=== PATIENT | female | born 1960 | race Caucasian/White ===

== ENCOUNTER 2016-09-16 09:29 | Emergency (ER) | payer BC ==
[2016-09-16] MEDS ORDERED: ASPIRIN 81 MG CHEWABLE TABLET PO ONE (09:48)
[2016-09-16 10:09] LABS: BASO % 0.7 % (0-6); EOS % 0.7 % (0-6); HEMATOCRIT 46.6 % (35.0-47.0); HEMOGLOBIN 16.1 gm/dl (11.6-16.0); LYMPH % 25.2 % (16-45); MEAN CELL VOLUME 95.1 fl (81-97); MEAN CORPUSCULAR HGB CONC 34.5 g/dl (32-36); MEAN PLATELET VOLUME 9.3 fl (7.4-10.4); MONO % 6.4 % (0-9); PLATELET COUNT 152 K/uL (130-400); RED CELL DISTRIBUTION WIDTH 12.6 % (11.5-14.5); WHITE BLOOD COUNT W/O DIFF 6.1 K/uL (4.2-12.2)
--- NOTE | 2016-09-16 10:09 | Emergency Department Record ---
History of Present Illness - General Chief Complaint: Arrythmia/Palpitations Stated Complaint: FLUTTERY IN CHEST AREA Time Seen by Provider: 09/16/16 09:46 Source: Patient, RN notes reviewed Mode of Arrival: Ambulatory - History of Present Illness Initial Comments: fluttering in chest for two days and she denies chest pain and she drinks one to two diet pepsis per day and and she denies stress and no cough cold or NVD and no dysuria and no dyspnea and no leg pains of travel history . Primary is Dr. Renner. Patient has had this happened before about 20 years ago. Currently no fluttering or chest pain. NSR and rate 98 on the monitor. MD Complaint: Palpitations Onset/Timin -: Days(s) Associated Symptoms: Anxiety Treatments Prior to Arrival: Other - Related Data Home Medications Medication Instructions Recorded Confirmed Last Taken Gabapentin 100 mg PO TID cap 06/12/16 09/16/16 09/15/16 Meloxicam 7.5 mg PO DAILY tab 06/12/16 09/16/16 09/16/16 Calcium Carbonate [Calcium] 600 mg PO DAILY 09/16/16 09/16/16 09/15/16 Cholecalciferol (Vitamin D3) 1,000 unit PO DAILY 09/16/16 09/16/16 09/15/16 [Vitamin D3] Multivitamin [Multi-Vitamin Daily] 1 each PO DAILY 09/16/16 09/16/16 09/15/16 [place]-3/Dha/Epa/Fish Oil [Fish Oil 1 each PO DAILY 09/16/16 09/16/16 09/16/16 1,000 mg Softgel] Pravastatin Sodium [Pravachol] 20 mg PO DAILY 09/16/16 09/16/16 09/16/16 Ranitidine HCl [Zantac] 150 mg PO DAILY 09/16/16 09/16/16 09/16/16 Trazodone HCl 50 mg PO QHS 09/16/16 09/16/16 09/15/16 Previous Rx's Medication Instructions Recorded Lorazepam [Ativan] 0.5 mg PO Q6HR #20 tablet 09/16/16 Allergies Allergy/AdvReac Type Severity Reaction Status Date / Time No Known Drug Allergies Allergy Unverified 06/12/16 10:15 Travel Screening - Travel/Exposure Within Last 30 Days Have you traveled within the last 30 days?: No - Travel/Exposure Within Last Year Have you traveled outside the [place] in the last year?: No Review of Systems Reviewed: No additional complaints except as noted below Constitutional: Reports: As per HPI. Denies: Chills, Fever, Malaise, Night sweats, Weakness, Weight change Eyes: Reports: As per HPI. Denies: Eye discharge, Eye pain, Photophobia, Vision change ENT: Reports: As per HPI. Denies: Congestion, Dental pain, Ear pain, Epistaxis , Hearing loss, Throat pain Respiratory: Reports: As per HPI. Denies: Cough, Dyspnea, Hemoptysis, Stridor, Wheezes Cardiovascular: Reports: As per HPI, Palpitations. Denies: Arrhythmia, Chest pain, Dyspnea on exertion, Edema, Murmurs, Orthopnea, Paroxysmal nocturnal dyspnea, Rheumatic Fever, Syncope Endocrine: Reports: As per HPI. Denies: Fatigue, Heat or cold intolerance, Polydipsia, Polyuria Gastrointestinal: Reports: As per HPI. Denies: Abdominal pain, Constipation, Diarrhea, Hematemesis, Hematochezia, Melena, Nausea, Vomiting Genitourinary: Reports: As per HPI. Denies: Abnormal menses, Discharge, Dyspareunia, Dysuria, Frequency, Hematuria, Incontinence, Retention, Urgency Musculoskeletal: Reports: As per HPI. Denies: Arthralgia, Back pain, Gout, Joint swelling, Myalgia, Neck pain Skin: Reports: As per HPI. Denies: Bruising, Change in color, Change in hair/ nails, Lesions, Pruritus, Rash Neurological: Reports: As per HPI. Denies: Abnormal gait, Confusion, Headache, Numbness, Paresthesias, Seizure, Tingling, Tremors, Vertigo, Weakness Psychiatric: Reports: As per HPI. Denies: Anxiety, Auditory hallucinations, Depression, Homicidal thoughts, Suicidal thoughts, Visual hallucinations Hematological/Lymphatic: Reports: As per HPI. Denies: Anemia, Blood Clots, Easy bleeding, Easy bruising, Swollen glands Past Medical History - SOCIAL HISTORY Smoking Status: Never smoker Alcohol Use: None Drug Use: None - RESPIRATORY Hx Respiratory Disorders: Yes Hx Bronchitis: Yes - CARDIOVASCULAR Hx Cardio Disorders: No - NEURO Hx Neuro Disorders: No - GI Hx GI Disorders: Yes Hx Reflux: Yes Hx Hiatal Hernia: Yes - Hx Genitourinary Disorders: No - ENDOCRINE Hx Endocrine Disorders: No - MUSCULOSKELETAL Hx Musculoskeletal Disorders: Yes Hx Arthritis: Yes - PSYCH Hx Psych Problems: Yes Hx Depression: Yes - HEMATOLOGY/ONCOLOGY Hx Hematology/Oncology Disorders: No Family Medical History Any Significant Family History?: No Physical Exam - General General Appearance: Alert, Oriented x3, Cooperative, No acute distress - Head Head exam: Normal inspection - Eye Eye exam: Normal appearance, PERRL Pupils: Normal accommodation - ENT ENT exam: Normal exam, Mucous membranes moist, Normal external ear exam, Normal orophraynx, TM's normal bilaterally Ear exam: Normal external inspection. negative: External canal tenderness Nasal Exam: Normal inspection. negative: Discharge, Sinus tenderness Mouth exam: Normal external inspection, Tongue normal Teeth exam: Normal inspection. negative: Dental caries Throat exam: Normal inspection. negative: Tonsillar erythema, Tonsillar exudate - Neck Neck exam: Normal inspection, Full ROM. negative: Tenderness - Respiratory Respiratory exam: Normal lung sounds bilaterally. negative: Respiratory distress - Cardiovascular Cardiovascular Exam: Regular rate, Normal rhythm, Normal heart sounds - GI/Abdominal GI/Abdominal exam: Soft, Normal bowel sounds. negative: Tenderness - Rectal Rectal exam: Deferred - exam: Deferred - Extremities Extremities exam: Normal inspection, Full ROM, Normal capillary refill. negative: Tenderness - Back Back exam: Reports: Normal inspection, Full ROM. Denies: Muscle spasm, Rash noted, Tenderness - Neurological Neurological exam: Alert, Normal gait, Oriented X3, Reflexes normal - Psychiatric Psychiatric exam: Normal affect, Normal mood - Skin Skin exam: Dry, Intact, Normal color, Warm Course Vital Signs 09/16/16 09/16/16 09:30 09:39 Temperature 98.3 F Pulse Rate [ 107 H Pulse Ox Probe] Respiratory 16 Rate Blood Pressure 145/79 [Left Arm] Pulse Ox 96 Medical Decision Making - Data Complexity MDM Data: EKG Ordered and/or Reviewed (NSR) - Lab Data Result diagrams: 09/16/16 09:54 09/16/16 09:54 Disposition Clinical Impression: Palpitations Disposition: Home, Self-Care Condition: (1) Good Instructions: Heart Palpitations (ED) Additional Instructions: use holter monitor follow up with Dr. Renner in 1 to 7 days and if worse return to ED. Prescriptions: Lorazepam [Ativan] 0.5 mg PO Q6HR #20 tablet Forms: Patient Portal Access Time of Disposition: 15:02
[2016-09-16 10:13] LABS: MEAN CORPUSCULAR HEMOGLOBIN 32.8 pg (27-33)
[2016-09-16] MEDS ORDERED: LORAZEPAM 0.5 MG TABLET PO ONE (10:15)
[2016-09-16 10:22] LABS: ANION GAP 8.8 (7-16); BLOOD UREA NITROGEN 13 mg/dL (7-17); CARBON DIOXIDE 22.2 mmol/L (22-30); CREATININE 0.9 mg/dL (0.52-1.04); EST GLOMERULAR FILTRATION RATE > 60 ml/min; GLUCOSE,RANDOM 116 mg/dL (70-110)
[2016-09-16 10:34] LABS: CKMB 0.8 ug/L (0-6)
[2016-09-16 10:36] LABS: TROPONIN I < 0.012 ng/mL (0.00-0.034)
[2016-09-16] MEDS ORDERED: AL HYDROX/MAG HYDROX 30ML UD PO ONE (11:33)
--- NOTE | 2016-09-17 15:04 | RADIOLOGY REPORT ---
EXAM: CHEST 2 VIEWS HISTORY: RIGHT LOWER CHEST PAIN FOR THE PAST TWO DAYS. TECHNIQUE: PA and lateral upright views of the chest were obtained. COMPARISON: 06/12/16. FINDINGS: The heart, mediastinum, and pulmonary vasculature are normal. There is minor atelectasis or infiltrate at the right lung base. The lungs are otherwise clear. There is no pneumothorax or effusion. Degenerative changes are present within the spine. \ IMPRESSION: MILD ATELECTASIS OR INFILTRATE AT THE RIGHT LUNG BASE. JOB NUMBER: [id number] [facility]
== END 2016-09-16 15:44 | disposition home or self-care (01) ==
LOC: ER 09:29
DX: R00.2 Palpitations (principal)
CPT/HCPCS: 71020; 80048; 82553; 84443; 84484; 85025; 85730; 93005; 93010; 93225; 93226; 99284

== ENCOUNTER 2016-09-28 09:22 | Emergency (ER) | payer BC ==
[2016-09-28] MEDS ORDERED: 0.9 % SODIUM CHLORIDE 1,000 ML BAG IV ONE (10:02)
--- NOTE | 2016-09-28 10:17 | Emergency Department Record ---
History of Present Illness - General Chief Complaint: Palpitations Stated Complaint: FLUTTERING/NAUSEA/DIZZY Time Seen by Provider: 09/28/16 09:55 Source: Patient Mode of Arrival: Ambulatory Limitations: No limitations - History of Present Illness Initial Comments: pt has been feeling palpitations, nausea, lightheaded. she has been seen 2 other times for this here and at [facility]. her workups have been neg for etiology of palpitations. she did take her medications and vitamins on a empty stomach. she saw dr boo visualization developer last week and has more test scheduled with him. she had a neg 24 hr halter monitor Complaint: Palpitations Onset/Timin -: Hour(s) Context: Other Arrythmia History: Other Associated Symptoms: Nausea/vomiting, Other Treatments Prior to Arrival: Other Treatment Prior to Arrival Comment:: Baby aspirin - Related Data Home Medications Medication Instructions Recorded Confirmed Last Taken Gabapentin 100 mg PO TID cap 06/12/16 09/28/16 09/27/16 Meloxicam 7.5 mg PO DAILY tab 06/12/16 09/28/16 09/28/16 Calcium Carbonate [Calcium] 600 mg PO DAILY 09/16/16 09/28/16 09/28/16 Cholecalciferol (Vitamin D3) 1,000 unit PO DAILY 09/16/16 09/28/16 09/28/16 [Vitamin D3] Multivitamin [Multi-Vitamin Daily] 1 each PO DAILY 09/16/16 09/28/16 09/28/16 [place]-3/Dha/Epa/Fish Oil [Fish Oil 1 each PO DAILY 09/16/16 09/28/16 09/28/16 1,000 mg Softgel] Trazodone HCl 50 mg PO QHS 09/16/16 09/28/16 09/28/16 Aspirin [Aspir-Low] 81 mg PO DAILY 09/28/16 09/28/16 09/28/16 Fenofibrate [Fenoglide] 120 mg PO DAILY 09/28/16 09/28/16 09/28/16 Omeprazole [Prilosec] 20 mg PO DAILY 09/28/16 09/28/16 09/28/16 Previous Rx's Medication Instructions Recorded Lorazepam [Ativan] 0.5 mg PO Q6HR #20 tablet 09/16/16 Dicyclomine HCl [Bentyl] 10 mg PO Q8H #10 cap 09/28/16 Hydrocodone/Acetaminophen [[place] 1 each PO Q6HR #7 tablet 09/28/16 5-325 Tablet] Allergies Allergy/AdvReac Type Severity Reaction Status Date / Time No Known Drug Allergies Allergy Unverified 06/12/16 10:15 Travel Screening - Travel/Exposure Within Last 30 Days Have you traveled within the last 30 days?: No - Travel/Exposure Within Last Year Have you traveled outside the [place] in the last year?: No - Additonal Travel Details Have you been exposed to anyone with a communicable illness?: No - Travel Symptoms Symptom Screening: None Review of Systems Reviewed: No additional complaints except as noted below Constitutional: Reports: As per HPI. Denies: Chills, Fever, Malaise, Night sweats, Weakness, Weight change Eyes: Reports: As per HPI. Denies: Eye discharge, Eye pain, Photophobia, Vision change ENT: Reports: As per HPI. Denies: Congestion, Dental pain, Ear pain, Epistaxis , Hearing loss, Throat pain Respiratory: Reports: As per HPI. Denies: Cough, Dyspnea, Hemoptysis, Stridor, Wheezes Cardiovascular: Reports: As per HPI. Denies: Arrhythmia, Chest pain, Dyspnea on exertion, Edema, Murmurs, Orthopnea, Palpitations, Paroxysmal nocturnal dyspnea, Rheumatic Fever, Syncope Endocrine: Reports: As per HPI. Denies: Fatigue, Heat or cold intolerance, Polydipsia, Polyuria Gastrointestinal: Reports: As per HPI. Denies: Abdominal pain, Constipation, Diarrhea, Hematemesis, Hematochezia, Melena, Nausea, Vomiting Genitourinary: Reports: As per HPI. Denies: Abnormal menses, Discharge, Dyspareunia, Dysuria, Frequency, Hematuria, Incontinence, Retention, Urgency Musculoskeletal: Reports: As per HPI. Denies: Arthralgia, Back pain, Gout, Joint swelling, Myalgia, Neck pain Skin: Reports: As per HPI. Denies: Bruising, Change in color, Change in hair/ nails, Lesions, Pruritus, Rash Neurological: Reports: As per HPI. Denies: Abnormal gait, Confusion, Headache, Numbness, Paresthesias, Seizure, Tingling, Tremors, Vertigo, Weakness Psychiatric: Reports: As per HPI. Denies: Anxiety, Auditory hallucinations, Depression, Homicidal thoughts, Suicidal thoughts, Visual hallucinations Hematological/Lymphatic: Reports: As per HPI. Denies: Anemia, Blood Clots, Easy bleeding, Easy bruising, Swollen glands Past Medical History - SOCIAL HISTORY Smoking Status: Never smoker Alcohol Use: None Drug Use: None - RESPIRATORY Hx Respiratory Disorders: Yes Hx Bronchitis: Yes - CARDIOVASCULAR Hx Cardio Disorders: No - NEURO Hx Neuro Disorders: No - GI Hx GI Disorders: Yes Hx Reflux: Yes Hx Hiatal Hernia: Yes - Hx Genitourinary Disorders: No - ENDOCRINE Hx Endocrine Disorders: No - MUSCULOSKELETAL Hx Musculoskeletal Disorders: Yes Hx Arthritis: Yes - PSYCH Hx Psych Problems: Yes Hx Depression: Yes - HEMATOLOGY/ONCOLOGY Hx Hematology/Oncology Disorders: No Family Medical History Any Significant Family History?: No Physical Exam - General General Appearance: Alert, Oriented x3, Cooperative, Mild distress - Head Head exam: Normal inspection - Eye Eye exam: Normal appearance, PERRL, EOMI Pupils: Normal accommodation - ENT ENT exam: Normal exam, Mucous membranes moist, Normal external ear exam, Normal orophraynx Ear exam: Normal external inspection. negative: External canal tenderness Nasal Exam: Normal inspection. negative: Discharge, Sinus tenderness Mouth exam: Normal external inspection, Tongue normal Teeth exam: Normal inspection. negative: Dental caries Throat exam: Normal inspection. negative: Tonsillar erythema, Tonsillar exudate - Neck Neck exam: Normal inspection, Full ROM. negative: Tenderness - Respiratory Respiratory exam: Normal lung sounds bilaterally. negative: Respiratory distress - Cardiovascular Cardiovascular Exam: Regular rate, Normal rhythm, Normal heart sounds - GI/Abdominal GI/Abdominal exam: Soft, Normal bowel sounds, Tenderness (ruq), Other (positive murphys) - Rectal Rectal exam: Deferred - exam: Deferred - Extremities Extremities exam: Normal inspection, Full ROM, Normal capillary refill. negative: Tenderness - Back Back exam: Reports: Normal inspection, Full ROM. Denies: Muscle spasm, Rash noted, Tenderness - Neurological Neurological exam: Alert, CN II-XII intact, Normal gait, Oriented X3 - Psychiatric Psychiatric exam: Normal affect, Normal mood - Skin Skin exam: Dry, Intact, Normal color, Warm Course Vital Signs 09/28/16 09:43 Temperature 97.9 F Pulse Rate [ 84 Pulse Ox Probe] Respiratory 20 Rate Blood Pressure 142/75 [Left Arm] Pulse Ox 96 - Reevaluation(s) Reevaluation #1: 09/28/16 12:40 d/w dr jimenez who will do a cholecystectomy on saturday Medical Decision Making - Lab Data Result diagrams: 09/28/16 09:47 09/28/16 09:47 Disposition Disposition: Discharge Clinical Impression: Biliary colic, Palpitations Cholelithiasis Qualifiers: Cholelithiasis location: gallbladder Cholecystitis presence: without cholecystitis Biliary obstruction: without biliary obstruction Qualified Code(s) : K80.20 - Calculus of gallbladder without cholecystitis without obstruction Disposition: Home, Self-Care Condition: (1) Good Instructions: Heart Palpitations (ED), Biliary Colic (ED), Gallstones (ED) Additional Instructions: follow up with surgery on saturday with dr jimenez. return sooner if worse. nothing by mouth after midnight on saturday. low fat diet. Prescriptions: Hydrocodone/Acetaminophen [[place] 5-325 Tablet] 1 each PO Q6HR #7 tablet Dicyclomine HCl [Bentyl] 10 mg PO Q8H #10 cap Referrals: Haile Jimenez [DOCTOR OF OSTEOPATH] - Forms: Patient Portal Access Quality - Quality Measures Quality Measures: N/A - Blood Pressure Screening Blood Pressure Classification: Hypertensive Reading Systolic Measurement: 142 Diastolic Measurement: 63 Screening for High Blood Pressure: < First Hypertensive BP, F/U Documented > [ [id number]] First Hypertensive Follow-up Interventions: Referral to alternative/primary care provider.
[2016-09-28 10:18] LABS: BASO % 0.3 % (0-6); GRAN % 65.3 % (47-80); HEMATOCRIT 47.6 % (35.0-47.0); HEMOGLOBIN 16.6 gm/dl (11.6-16.0); LYMPH % 24.7 % (16-45); MEAN CELL VOLUME 93.9 fl (81-97); MEAN CORPUSCULAR HEMOGLOBIN 32.7 pg (27-33); MEAN CORPUSCULAR HGB CONC 34.9 g/dl (32-36); MONO % 8.7 % (0-9); PLATELET COUNT 157 K/uL (130-400); RED BLOOD COUNT 5.07 M/uL (3.80-5.40); RED CELL DISTRIBUTION WIDTH 12.4 % (11.5-14.5); WHITE BLOOD COUNT W/O DIFF 5.7 K/uL (4.2-12.2)
[2016-09-28 10:32] LABS: ALB/GLOB RATIO 1.7 (1.1-1.8); ALBUMIN 4.5 gm/dL (3.5-5.0); ALKALINE PHOSPHATASE 58 U/L (38-126); ALT/SGPT 173 U/L (9-52); ANION GAP 12.2 (7-16); AST/SGOT 123 U/L (14-36); BILIRUBIN,TOTAL 0.68 mg/dL (0.2-1.3); BLOOD UREA NITROGEN 10 mg/dL (7-17); CARBON DIOXIDE 21.8 mmol/L (22-30); CREATINE PHOSPHOKINASE 65 U/L (30-135); CREATININE 0.9 mg/dL (0.52-1.04); EST GLOMERULAR FILTRATION RATE > 60 ml/min; GLUCOSE,RANDOM 119 mg/dL (70-110); LIPASE 105 U/L (23-300); TOTAL PROTEIN 7.2 gm/dL (6.3-8.2)
[2016-09-28 10:44] LABS: CKMB 0.5 ug/L (0-6)
[2016-09-28 11:01] LABS: TROPONIN I < 0.012 ng/mL (0.00-0.034)
--- NOTE | 2016-09-29 07:15 | ULTRASOUND REPORT ---
DATE: 09/28/2016 at 11:18. EXAM: ABDOMINAL ULTRASOUND. HISTORY: Acute right upper quadrant abdominal pain. COMPARISON: None. TECHNIQUE: Real time angulo scale sonographic imaging of the abdomen was performed. FINDINGS: The study is fairly limited due to body habitus and poor penetration. The liver and spleen are very compromised due to poor penetration. The gallbladder demonstrates a large number of calcified gallstones which are mobile. No gallbladder wall thickening or pericholecystic fluid. Mild tenderness over the right upper quadrant; although the sonographic Estrella's sign is negative. The common duct measures 3.0 mm; within normal limits. The right kidney is poorly seen due to poor penetration. The left kidney is grossly normal without mass, calculi, or hydronephrosis. The right kidney measures 11.4 x 3.9 x 5.0 cm. The left kidney measures 10.4 x 4.3 x 4.1 cm. The pancreas is not seen due to poor penetration. The abdominal aorta and IVC not seen well due to poor penetration. IMPRESSION: 1. CHOLELITHIASIS. THERE IS TENDERNESS OVER THE RIGHT UPPER QUADRANT OF A MILD DEGREE; ALTHOUGH THERE ARE NO SECONDARY SIGNS OF ACUTE CHOLECYSTITIS. 2. NO BILIARY DILATATION. JOB NUMBER: [id number] [facility]TD[facility]
== END 2016-09-28 13:02 | disposition home or self-care (01) ==
LOC: ER 09:22
DX: K80.20 Calculus of gallbladder without cholecystitis without obstruction (principal); R11.2 Nausea with vomiting, unspecified; R00.2 Palpitations
CPT/HCPCS: 76700; 80053; 82550; 82553; 83690; 84443; 84484; 85025; 93005; 93010; 99284; J7030

== ENCOUNTER 2016-10-01 07:18 | Day surgery (SDC) | payer BC ==
[~2016-10-01 07:18] MED LIST: ACETAMINOPHEN 1,000 MG/100 ML BTL IV ONE; FAMOTIDINE 20MG TABLET PO ONE; MECLIZINE 25 MG TABLET PO ONE; METOCLOPRAMIDE 10 MG TABLET PO ONE
[2016-10-01] MEDS ORDERED: HYDROCODONE/APAP 5/325MG TABLET PO ONE (13:37)
[2016-10-01] MEDS ORDERED: BUPIVACAINE 0.25% W/EPI MPF 30ML VIAL IVP ONE (13:37)
[2016-10-01] MEDS ORDERED: DEXAMETHASONE 4 MG/ML 1ML VIAL IVP ONE (13:47)
[2016-10-01] MEDS ORDERED: PROPOFOL 10 MG/ML VIAL IV ONE (13:47)
[2016-10-01] MEDS ORDERED: ROCURONIUM BROMIDE 50MG/5ML VIAL IV ONE (13:47)
[2016-10-01] MEDS ORDERED: ONDANSETRON HCL IV 4 MG/2 ML VIAL IVP ONE (13:47)
[2016-10-01] MEDS ORDERED: FENTANYL PF 100MCG/2ML VIAL IV ONE (13:47)
[2016-10-01] MEDS ORDERED: KETOROLAC 30 MG/ML VIAL IVP ONE (13:47)
[2016-10-01] MEDS ORDERED: LIDOCAINE 2% MDV (20MG/ML) 20ML VIAL IV ONE (13:47)
[2016-10-01] MEDS ORDERED: MIDAZOLAM HCL 2MG/2ML VIAL IV ONE (13:47)
[2016-10-01] MEDS ORDERED: SUGAMMADEX SODIUM 200 MG/2 ML VIAL IV ONE (13:47)
[2016-10-01] MEDS ORDERED: LABETALOL HCL 5MG/ML, 20ML VIAL IV ONE (13:47)
[2016-10-01] MEDS ORDERED: SEVOFLURANE 250 ML INH ONE (13:47)
--- NOTE | 2016-10-02 19:03 | History and Physical Report ---
DATE OF EVALUATION: 10/01/2016 CHIEF COMPLAINT: Right upper quadrant pain. HISTORY OF CHIEF COMPLAINT: Patient is a 48-year-old female who has had about a 3-week history of epigastric right upper quadrant pain. She has been seen in the ER on 3 separate occasions, once up at [place], and twice here. They felt initially it was cardiac in nature, and therefore she was seen by a hostage negotiator and put on a 24-hour Holter monitor. She was cleared from Cardiology and they felt this was not the cause of her discomfort. She states this happens postprandially with nausea, sometimes radiation to her right flank and back. She has never had an upper endoscopy. She has remote history of mild reflux, for which she took Mylanta. PAST MEDICAL HISTORY: Anxiety, GERD, morbid obesity. PAST SURGICAL HISTORY: She cannot recall. CURRENT MEDICATIONS: Include gabapentin, meloxicam, calcium, trazodone, aspirin, Prilosec, Ativan, Bentyl, [place]. ALLERGIES: She has no known medical allergies. SOCIAL HISTORY: She denies any tobacco or alcohol usage. PHYSICAL EXAMINATION: VITAL SIGNS: Height 5'4". Weight 281 pounds. LUNGS: Clear. HEART: Regular. ABDOMEN: Soft. Obese. Mild right subcostal tenderness to deep palpation. EXTREMITIES: No trace of edema. FINDINGS: Ultrasound was reviewed, which did reveal cholelithiasis without evidence of acute cholecystitis. At this time, we had a long discussion with her and her . It is possible she could be suffering from recurrent biliary colic. We did discuss cholecystectomy versus medical management. She desires surgical intervention. Risks include, but are not limited to, bleeding, infection, ductal injury, possible conversion to open, postoperative bile leak, nonresolution of her symptoms, and she understands this fully. This will be scheduled shortly. Thank you for this referral. MONIQUE
--- NOTE | 2016-10-03 13:42 | Operative Note ---
DATE OF SURGERY: 10/01/2016 Surgeon: Haile Ortiz DO PREOPERATIVE DIAGNOSIS: Recurrent biliary colic. POSTOPERATIVE DIAGNOSIS: Chronic cholecystitis. OPERATION: Laparoscopic cholecystectomy. Indication: The patient is a 56-year-old female who is having right subcostal postprandial pain. She was in the ER 3 times. She also had a cardiac workup which was negative. We did discuss cholecystectomy versus medical management. She desired surgical intervention. Risks include but are not limited to bleeding, infection, ductal injury, possible conversion to open, postoperative bile leak, and she understood this fully. Due to her morbid obesity at almost 300 pounds, she was at high risk for wound infections and hernias, and she understood this fully as well. Thereafter, consent was signed and questions answered. PROCEDURE: She was taken to the operating room and placed in a supine position. General anesthesia was administered per the department of anesthesia. The patient's abdomen was prepped and draped in the usual fashion. I did elect to go to a supraumbilical region to bring my ports closer to the liver. Therefore, the area of the supraumbilical region was anesthetized with a total of 3 mL of 0.25% Sensorcaine with epinephrine. A 3 cm supraumbilical incision was made. This was carried down to the anterior rectus fascia. This was incised. Alonzo clamps were placed on the fascial edges and brought up into the wound. Stay sutures of 0 Vicryl were placed. The posterior rectus sheath was identified and incised. The peritoneal cavity was entered bluntly. At this time, a 10 mm blunt Adam port was placed and adequate pneumoperitoneum was established. Under direct visualization, additional 5 mm epigastric and two 5 mm right subcostal ports were placed. The patient was then rotated into reverse Trendelenburg with rotation to the left. There gallbladder was identified in the subhepatic space. It was covered densely with omentum. The patient had severe fatty infiltration of the liver, and cephalad retraction was somewhat limited. I did have to choke up way up on the gallbladder, lateral retraction applied as well. The hepatocystic triangle was thoroughly dissected out. The distal half of the gallbladder was released from the cystic plate enlarging a retrocystic window. The cystic duct and cystic artery were clearly identified. There was no aberrant anatomy, no posterior ductal structures. Each structure was dissected out in a 360-degree fashion. Cystic artery was taken out with the Jorge Luis harmonic. Cystic duct was triply clipped and cut in standard fashion. The gallbladder was then taken off the liver bed with the Jorge Luis harmonic. I did place this into an EndoCatch bag due to the thickened and extreme size of the gallbladder. I did have to stretch her skin a bit with Natalia forceps. The gallbladder was extracted. The pneumoperitoneum was released. All ports were removed. The fascia was closed with 0 Vicryl in a [id number] fashion. The skin at all 4 ports was closed with 4-0 Vicryl. She was taken to the recovery room in satisfactory condition. FINDINGS AT THE TIME OF SURGERY: Chronic cholecystitis. CC: AMISHA JONES MD, FACP DUKED
== END 2016-10-01 11:50 | disposition home or self-care (01) ==
LOC: SUR 07:18
PROVIDERS: ATTEND Surgery
DX: K80.10 Calculus of gallbladder with chronic cholecystitis without obstruction (principal); E78.00 Pure hypercholesterolemia, unspecified
CPT/HCPCS: J1885; J2405; J3490

== ENCOUNTER 2016-10-17 13:35 | Emergency (ER) | payer BC ==
[2016-10-17] MEDS ORDERED: AL HYDROX/MAG HYDROX 30ML UD PO ONE (13:58)
[2016-10-17 14:12] LABS: BASO % 0.4 % (0-6); EOS % 1.6 % (0-6); GRAN % 57.2 % (47-80); HEMATOCRIT 44.8 % (35.0-47.0); HEMOGLOBIN 15.2 gm/dl (11.6-16.0); MEAN CELL VOLUME 94.9 fl (81-97); MEAN CORPUSCULAR HEMOGLOBIN 32.2 pg (27-33); MEAN CORPUSCULAR HGB CONC 33.9 g/dl (32-36); MEAN PLATELET VOLUME 10.1 fl (7.4-10.4); MONO % 8.8 % (0-9); PLATELET COUNT 154 K/uL (130-400); RED BLOOD COUNT 4.72 M/uL (3.80-5.40); RED CELL DISTRIBUTION WIDTH 12.4 % (11.5-14.5); WHITE BLOOD COUNT W/O DIFF 4.9 K/uL (4.2-12.2)
[2016-10-17] MEDS: MAGNESIUM HYDROXIDE/AL HYDROX 30 ML, LIDOCAINE VISC 2% 200 MG PO ONE ×4 (14:13→14:30)
--- NOTE | 2016-10-17 14:19 | Emergency Department Record ---
History of Present Illness - General Chief Complaint: Indigestion Stated Complaint: BURNING IN CHEST AND JETTERY Time Seen by Provider: 10/17/16 13:54 Source: Patient, RN notes reviewed Mode of Arrival: Ambulatory - History of Present Illness Initial Comments: Last night burning episode in chest started while sleeping and eating makes it worse. No diaphoresis and her left arm has a prickly feeling in it. She had her GB removed [address] Ortiz and currently no dyspnea and no leg pains. Patient is having reflux since her Gall bladder removal mostly with burping and she is taking protonix 40 mg a day. Onset/Timin -: Hour(s) Onset: Awoke with symptoms Pain Location: Epigastric Severity scale (1-10): 7 Quality: Other Consistency: Intermittent Improves With: Nothing Worsens With: Nothing Other Symptoms: Burping Treatments Prior to Arrival: None - Related Data Home Medications Medication Instructions Recorded Confirmed Last Taken Gabapentin 100 mg PO TID cap 06/12/16 10/17/16 10/17/16 Meloxicam 7.5 mg PO DAILY tab 06/12/16 10/17/16 10/17/16 Calcium Carbonate [Calcium] 600 mg PO DAILY 09/16/16 10/17/16 10/17/16 Cholecalciferol (Vitamin D3) 1,000 unit PO DAILY 09/16/16 10/17/16 10/17/16 [Vitamin D3] Multivitamin [Multi-Vitamin Daily] 1 each PO DAILY 09/16/16 10/17/16 10/17/16 [place]-3/Dha/Epa/Fish Oil [Fish Oil 1 each PO DAILY 09/16/16 10/17/16 10/17/16 1,000 mg Softgel] Trazodone HCl 50 mg PO QHS 09/16/16 10/17/16 10/17/16 Aspirin [Aspir-Low] 81 mg PO DAILY 09/28/16 10/17/16 10/17/16 Fenofibrate [Fenoglide] 120 mg PO DAILY 09/28/16 10/17/16 10/17/16 Sertraline HCl [Zoloft] 25 mg PO QHS 10/17/16 10/17/16 10/16/16 Previous Rx's Medication Instructions Recorded Dicyclomine HCl [Bentyl] 10 mg PO Q8H #10 cap 09/28/16 Pantoprazole Sodium [Protonix] 40 mg PO DAILY #30 10/17/16 Allergies Allergy/AdvReac Type Severity Reaction Status Date / Time atorvastatin [From Lipitor] Allergy Intermediate ABDOMINAL Verified 10/17/16 13: 46 CRAMPS latex AdvReac Intermediate RASH Verified 10/17/16 13:46 nizatidine [From Axid] AdvReac Intermediate NAUSEA AND Verified 10/17/16 13:46 VOMITING Travel Screening - Travel/Exposure Within Last 30 Days Have you traveled within the last 30 days?: No - Travel/Exposure Within Last Year Have you traveled outside the [place] in the last year?: No - Additonal Travel Details Have you been exposed to anyone with a communicable illness?: No - Travel Symptoms Symptom Screening: None Review of Systems Reviewed: No additional complaints except as noted below Constitutional: Reports: As per HPI. Denies: Chills, Fever, Malaise, Night sweats, Weakness, Weight change Eyes: Reports: As per HPI. Denies: Eye discharge, Eye pain, Photophobia, Vision change ENT: Reports: As per HPI. Denies: Congestion, Dental pain, Ear pain, Epistaxis , Hearing loss, Throat pain Respiratory: Reports: As per HPI. Denies: Cough, Dyspnea, Hemoptysis, Stridor, Wheezes Cardiovascular: Reports: As per HPI. Denies: Arrhythmia, Chest pain, Dyspnea on exertion, Edema, Murmurs, Orthopnea, Palpitations, Paroxysmal nocturnal dyspnea, Rheumatic Fever, Syncope Endocrine: Reports: As per HPI. Denies: Fatigue, Heat or cold intolerance, Polydipsia, Polyuria Gastrointestinal: Reports: As per HPI, Other (burning sensation in chest). Denies: Abdominal pain, Constipation, Diarrhea, Hematemesis, Hematochezia, Melena, Nausea, Vomiting Genitourinary: Reports: As per HPI. Denies: Abnormal menses, Discharge, Dyspareunia, Dysuria, Frequency, Hematuria, Incontinence, Retention, Urgency Musculoskeletal: Reports: As per HPI. Denies: Arthralgia, Back pain, Gout, Joint swelling, Myalgia, Neck pain Skin: Reports: As per HPI. Denies: Bruising, Change in color, Change in hair/ nails, Lesions, Pruritus, Rash Neurological: Reports: As per HPI. Denies: Abnormal gait, Confusion, Headache, Numbness, Paresthesias, Seizure, Tingling, Tremors, Vertigo, Weakness Psychiatric: Reports: As per HPI. Denies: Anxiety, Auditory hallucinations, Depression, Homicidal thoughts, Suicidal thoughts, Visual hallucinations Hematological/Lymphatic: Reports: As per HPI. Denies: Anemia, Blood Clots, Easy bleeding, Easy bruising, Swollen glands Past Medical History - SOCIAL HISTORY Smoking Status: Never smoker Alcohol Use: None Drug Use: None - RESPIRATORY Hx Respiratory Disorders: Yes Hx Bronchitis: Yes - CARDIOVASCULAR Hx Cardio Disorders: Yes Hx Palpitations: Yes - NEURO Hx Neuro Disorders: No - GI Hx GI Disorders: Yes Hx Reflux: Yes Hx Hiatal Hernia: Yes Hx Nausea/Vomiting: Yes - Hx Genitourinary Disorders: No - ENDOCRINE Hx Endocrine Disorders: No - MUSCULOSKELETAL Hx Musculoskeletal Disorders: Yes Hx Arthritis: Yes Hx Fibromyalgia: Yes - PSYCH Hx Psych Problems: Yes Hx Anxiety: Yes (with recent illness) Hx Depression: Yes - HEMATOLOGY/ONCOLOGY Hx Hematology/Oncology Disorders: No Family Medical History Any Significant Family History?: Yes Hx Cancer: Mother Hx Diabetes: Mother Hx Heart Disease: Father, Mother Hx HTN: Father, Mother Physical Exam - General General Appearance: Alert, Oriented x3, Cooperative, No acute distress - Head Head exam: Normal inspection - Eye Eye exam: Normal appearance, PERRL Pupils: Normal accommodation - ENT ENT exam: Normal exam, Mucous membranes moist, Normal external ear exam, Normal orophraynx, TM's normal bilaterally Ear exam: Normal external inspection. negative: External canal tenderness Nasal Exam: Normal inspection. negative: Discharge, Sinus tenderness Mouth exam: Normal external inspection, Tongue normal Teeth exam: Normal inspection. negative: Dental caries Throat exam: Normal inspection. negative: Tonsillar erythema, Tonsillar exudate - Neck Neck exam: Normal inspection, Full ROM. negative: Tenderness - Respiratory Respiratory exam: Normal lung sounds bilaterally. negative: Respiratory distress - Cardiovascular Cardiovascular Exam: Regular rate, Normal rhythm, Normal heart sounds - GI/Abdominal GI/Abdominal exam: Soft, Normal bowel sounds. negative: Tenderness - Rectal Rectal exam: Deferred - exam: Deferred - Extremities Extremities exam: Normal inspection, Full ROM, Normal capillary refill. negative: Tenderness - Back Back exam: Reports: Normal inspection, Full ROM. Denies: Muscle spasm, Rash noted, Tenderness - Neurological Neurological exam: Alert, Normal gait, Oriented X3, Reflexes normal - Psychiatric Psychiatric exam: Normal affect, Normal mood - Skin Skin exam: Dry, Intact, Normal color, Warm Course Vital Signs 10/17/16 13:52 Temperature 97.4 F L Pulse Rate 89 Respiratory 16 Rate Blood Pressure 141/73 Pulse Ox 96 - Reevaluation(s) Reevaluation #1: feeling better after the GI cocktail Second set of cardiac enzymes neg 10/17/16 17:16 Medical Decision Making - Data Complexity MDM Data: Labs Ordered and/or Reviewed (cardiac enzymes negative), EKG Ordered and/or Reviewed (EKG Nonspecific anterior changes same as 09/28/2016 ,T wave inversion V1,2,3) - Lab Data Result diagrams: 10/17/16 14:05 10/17/16 14:05 Disposition Clinical Impression: Burning in the chest GERD (gastroesophageal reflux disease) Qualifiers: Esophagitis presence: with esophagitis Qualified Code(s): K21.0 - Gastro- esophageal reflux disease with esophagitis Disposition: Home, Self-Care Condition: (1) Good Instructions: Indigestion (ED), Gastroesophageal Reflux Disease (ED) Additional Instructions: Follow up with DR. Sheffield staining machine operator tomorrow as scheduled. Increase protonix 40 mg to twice a day use maaloz two tablespoons after meals and bedtime Prescriptions: Pantoprazole Sodium [Protonix] 40 mg PO DAILY #30 Forms: Patient Portal Access Time of Disposition: 17:22 (-) Quality - Quality Measures Quality Measures: N/A - Blood Pressure Screening Blood Pressure Classification: Hypertensive Reading Systolic Measurement: 141 Diastolic Measurement: 73 Screening for High Blood Pressure: < First Hypertensive BP, F/U Documented > [ G8950] First Hypertensive Follow-up Interventions: Referral to alternative/primary care provider.
[2016-10-17] MEDS ORDERED: MAGNESIUM HYDROXIDE/AL HYDROX 30 ML, LIDOCAINE VISC 2% 200 MG PO ONE ×2 (14:23)
[2016-10-17 14:27] LABS: ANION GAP 7.8 (7-16); BLOOD UREA NITROGEN 13 mg/dL (7-17); CARBON DIOXIDE 24.2 mmol/L (22-30); EST GLOMERULAR FILTRATION RATE > 60 ml/min; GLUCOSE,RANDOM 113 mg/dL (70-110)
[2016-10-17 14:38] LABS: CKMB 0.3 ug/L (0-6)
[2016-10-17 14:45] LABS: TROPONIN I < 0.012 ng/mL (0.00-0.034)
[2016-10-17 17:03] LABS: TROPONIN I < 0.012 ng/mL (0.00-0.034)
[2016-10-17 17:09] LABS: CKMB 0.2 ug/L (0-6)
--- NOTE | 2016-10-18 13:25 | CT ANGIOGRAM REPORT ---
EXAM: CTA OF THE CHEST HISTORY: BURNING SENSATION. TECHNIQUE: CTA of the chest was performed using pulmonary embolus protocol following IV administration of 78 ml of Omnipaque 350 contrast. Axial images were obtained with coronal and sagittal MIP reconstructions. Comparison: None. FINDINGS: The mediastinal vasculature enhances normally. There is no intraluminal filling defect to suggest pulmonary embolus. Negative for thoracic aortic aneurysm or dissection. Limited evaluation of the upper abdomen shows fatty infiltrative change to the liver. The osseous structures are grossly intact. There is no mediastinal or hilar adenopathy. No pneumothorax. The visualized airways are patent. The lungs are clear. IMPRESSION: 1. NEGATIVE FOR AN ACUTE INTRATHORACIC PROCESS. 2. FATTY INFILTRATIVE CHANGE TO THE LIVER. JOB NUMBER: [id number] [facility]
== END 2016-10-17 17:41 | disposition home or self-care (01) ==
LOC: ER 13:35
DX: K21.0 Gastro-esophageal reflux disease with esophagitis (principal); R07.89 Other chest pain; Z90.49 Acquired absence of other specified parts of digestive tract
CPT/HCPCS: 99284 ×2; 85025; 85730; 82553; 84484; 80048; 85379; 71275; 93005; 93010; Q9967

== ENCOUNTER 2016-10-22 09:51 | Emergency (ER) | payer BC ==
[2016-10-22] MEDS ORDERED: ONDANSETRON HCL IV 4 MG/2 ML VIAL IVP ONE (09:57)
[2016-10-22] MEDS ORDERED: 0.9 % SODIUM CHLORIDE 1,000 ML BAG IV ONE (09:57)
[2016-10-22 10:11] LABS: BASO % 0.4 % (0-6); EOS % 1.2 % (0-6); HEMATOCRIT 45.9 % (35.0-47.0); HEMOGLOBIN 15.7 gm/dl (11.6-16.0); LYMPH % 25.9 % (16-45); MEAN CELL VOLUME 94.8 fl (81-97); MEAN CORPUSCULAR HEMOGLOBIN 32.4 pg (27-33); MEAN CORPUSCULAR HGB CONC 34.2 g/dl (32-36); MEAN PLATELET VOLUME 9.8 fl (7.4-10.4); MONO % 10.5 % (0-9); PLATELET COUNT 153 K/uL (130-400); RED BLOOD COUNT 4.84 M/uL (3.80-5.40); RED CELL DISTRIBUTION WIDTH 12.4 % (11.5-14.5); WHITE BLOOD COUNT W/O DIFF 5.1 K/uL (4.2-12.2)
--- NOTE | 2016-10-22 10:18 | Emergency Department Record ---
History of Present Illness - General Chief complaint: Nausea, Vomiting, Diarrhea Stated complaint: NAUSEA Time Seen by Provider: 10/22/16 09:52 Source: Patient, Family Mode of Arrival: Ambulatory Limitations: No limitations - History of Present Illness Initial comments: 56 yo female presents with nausea and shaking after walking out to the mailbox to get the mail. She reports she was not symptomatic prior to the episode. She has been seen recent in September on the and with palpitations, chest discomfort, lightheadedness. She was discovered to have gall stones and had her gall bladder removed on the . She was seen again on 10/17 with chest burning and palpitations. She has not had any return of symptoms since that ED visit. She had a Holter monitor on 09/16 reported as negative. On 10/17 she had negative cardiac enzymes and a negative CTA of the chest. She reports she saw Dr Sheffield for a chemical stress test that was normal 1.5 weeks ago. Additionally she was seen at [facility] for an ED visit on September 22 with palpitations. She reports she had a CTA of the chest, EKG, and cardiac enzymes. She states she has continued to have poor appetite and reflux since her gall bladder surgery. Mildly loose stools but not frankly diarrhea. MD complaint: Nausea Onset/Timin -: Hour(s) Description of Vomiting: Other Location: Epigastric Consistency: Intermittent Improves with: None Worsens with: None Context: Other Associated Symptoms: Nausea/vomiting - Related Data Home Medications Medication Instructions Recorded Confirmed Last Taken Gabapentin 100 mg PO TID cap 06/12/16 10/22/16 10/17/16 Meloxicam 7.5 mg PO DAILY tab 06/12/16 10/22/16 10/17/16 Calcium Carbonate [Calcium] 600 mg PO DAILY 09/16/16 10/22/16 10/17/16 Cholecalciferol (Vitamin D3) 1,000 unit PO DAILY 09/16/16 10/22/16 10/17/16 [Vitamin D3] Multivitamin [Multi-Vitamin Daily] 1 each PO DAILY 09/16/16 10/22/16 10/17/16 [place]-3/Dha/Epa/Fish Oil [Fish Oil 1 each PO DAILY 09/16/16 10/22/16 10/17/16 1,000 mg Softgel] Trazodone HCl 50 mg PO QHS 09/16/16 10/22/16 10/17/16 Aspirin [Aspir-Low] 81 mg PO DAILY 09/28/16 10/22/16 10/17/16 Fenofibrate [Fenoglide] 120 mg PO DAILY 09/28/16 10/22/16 10/17/16 Sertraline HCl [Zoloft] 25 mg PO QHS 10/17/16 10/22/16 10/16/16 Previous Rx's Medication Instructions Recorded Dicyclomine HCl [Bentyl] 10 mg PO Q8H #10 cap 09/28/16 Pantoprazole Sodium [Protonix] 40 mg PO DAILY #30 10/17/16 Allergies Allergy/AdvReac Type Severity Reaction Status Date / Time atorvastatin [From Lipitor] Allergy Intermediate ABDOMINAL Verified 10/17/16 13: 46 CRAMPS latex AdvReac Intermediate RASH Verified 10/17/16 13:46 nizatidine [From Axid] AdvReac Intermediate NAUSEA AND Verified 10/17/16 13:46 VOMITING Travel Screening - Travel/Exposure Within Last 30 Days Have you traveled within the last 30 days?: No Review of Systems Constitutional: Reports: Malaise. Denies: Chills, Fever, Weakness Eyes: Denies: Eye discharge, Eye pain, Photophobia ENT: Denies: Congestion, Throat pain Respiratory: Denies: Cough, Dyspnea, Hemoptysis, Stridor, Wheezes Cardiovascular: Reports: Chest pain (some burnng over the last month. she has seen her support analyst). Denies: Palpitations, Syncope Endocrine: Denies: Fatigue Gastrointestinal: Reports: Diarrhea (mildly loose), Nausea. Denies: Hematemesis , Hematochezia, Vomiting Genitourinary: Denies: Dysuria, Urgency Musculoskeletal: Denies: Arthralgia, Back pain, Myalgia, Neck pain Skin: Denies: Bruising, Change in color, Rash Neurological: Reports: Weakness. Denies: Confusion, Headache, Numbness, Tremors , Vertigo Psychiatric: Denies: Anxiety Hematological/Lymphatic: Denies: Anemia, Blood Clots, Easy bleeding, Easy bruising, Swollen glands Past Medical History - SOCIAL HISTORY Smoking Status: Never smoker Alcohol Use: None Drug Use: None - RESPIRATORY Hx Respiratory Disorders: Yes Hx Bronchitis: Yes - CARDIOVASCULAR Hx Cardio Disorders: Yes Hx Palpitations: Yes - NEURO Hx Neuro Disorders: No - GI Hx GI Disorders: Yes Hx Reflux: Yes Hx Hiatal Hernia: Yes Hx Nausea/Vomiting: Yes - Hx Genitourinary Disorders: No - ENDOCRINE Hx Endocrine Disorders: No - MUSCULOSKELETAL Hx Musculoskeletal Disorders: Yes Hx Arthritis: Yes Hx Fibromyalgia: Yes - PSYCH Hx Psych Problems: Yes Hx Anxiety: Yes (with recent illness) Hx Depression: Yes - HEMATOLOGY/ONCOLOGY Hx Hematology/Oncology Disorders: No Family Medical History Any Significant Family History?: Yes Hx Cancer: Mother Hx Diabetes: Mother Hx Heart Disease: Father, Mother Hx HTN: Father, Mother Physical Exam - General General Appearance: Alert, Oriented x3, Cooperative, No acute distress Limitations: No limitations - Head Head exam: Normal inspection - Eye Eye exam: Normal appearance, PERRL. negative: Conjunctival injection, Periorbital swelling - ENT ENT exam: Normal exam, Mucous membranes moist Ear exam: Normal external inspection Nasal Exam: Normal inspection Mouth exam: Normal external inspection Teeth exam: Normal inspection Throat exam: Normal inspection - Neck Neck exam: Normal inspection, Full ROM. negative: Tenderness - Respiratory Respiratory exam: Normal lung sounds bilaterally. negative: Respiratory distress - Cardiovascular Cardiovascular Exam: Regular rate, Normal rhythm, Normal heart sounds - GI/Abdominal GI/Abdominal exam: Soft. negative: Tenderness - Rectal Rectal exam: Deferred - exam: Deferred - Extremities Extremities exam: Normal inspection, Full ROM, Normal capillary refill. negative: Tenderness - Back Back exam: Reports: Normal inspection, Full ROM. Denies: Muscle spasm, Rash noted, Tenderness - Neurological Neurological exam: Alert, Normal gait, Oriented X3. negative: Altered - Psychiatric Psychiatric exam: Normal affect, Normal mood. negative: Agitated, Anxious - Skin Skin exam: Dry, Intact, Normal color, Warm Course Vital Signs 10/22/16 09:53 Temperature 98.7 F Pulse Rate 85 Respiratory 20 Rate Blood Pressure 122/88 Pulse Ox 95 - Reevaluation(s) Reevaluation #1: EKG NSR 82, intervals normal 434, [place] normal, St no acute changes, NS changes No changes from 10/17, 09/28/ and 09/[address] Ortiz about her ongoing nausea and GI symptoms after surgery. He recommends GI referral. If she has not seen one she will be referred to [facility]. 10/22/16 10:22 10/22/16 10:38 ED note from [facility] ED reviewed Negative CTA chest reviewed. Reevaluation #2: Records reviewed from Dr Sheffield's office 09/22/16 consult 10/12/16 Lexiscan: small to moderate in sixw minimal intensity reversible defect anterior, anterior septal, proximal anterolateral, Borderline abnormal. 10/12/16 ECHO EF 55%, No acute changes 10/22/16 10:55 No changes on today's EKG from the EKG provided from Dr Sheffield's office September 27 2016 10/22/16 11:13 Reevaluation #3: The nausea is gone at this time The labs were reviewed No acute changes on the CBC. CMP with ALT 100, AST 70 normal lipase, bili, alk phos. The Troponin is normal 10/22/16 11:09 Reevaluation #4: I BHAKTI GAMING for Yohannes He recommends going through [facility] for transfer to Dr Jasmine's service at [facility] 10/22/16 11:25 Reevaluation #5: I BHAKTI Jasmine who accepts the patient to [facility] 10/22/16 11:42 Medical Decision Making - Lab Data Result diagrams: 10/22/16 10:05 10/22/16 10:05 Disposition Disposition: Transfer Clinical Impression: Nausea Transfer To: [facility] Reason For Transfer: Chest pain Accepting Physician: Mitali Time Discussed w/Accepting Physician: 11:42 Condition: (1) Good Additional Instructions: Call Dr Renner for close follow up next available Return if any return of symptoms, chest pain, short of breath, or any new concerns. Referrals: [facility] Specialty Clinics [Provider Group] DELBERT GARLAND [DOCTOR OF OSTEOPATH] - Forms: Patient Portal Access Time of Disposition: 11:42 Quality - Quality Measures Quality Measures: N/A - Blood Pressure Screening View Details: Yes Blood Pressure Classification: Pre-Hypertensive BP Reading Systolic Measurement: 122 Diastolic Measurement: 88 Screening for High Blood Pressure: < Pre-Hypertensive BP, F/U Documented > [ G8950] Pre-Hypertensive Follow-up Interventions: Referral to alternative/primary care provider.
[2016-10-22 10:24] LABS: ALB/GLOB RATIO 1.7 (1.1-1.8); ALBUMIN 4.4 gm/dL (3.5-5.0); ALKALINE PHOSPHATASE 55 U/L (38-126); ALT/SGPT 100 U/L (9-52); ANION GAP 8.6 (7-16); AST/SGOT 70 U/L (14-36); BILIRUBIN,TOTAL 0.83 mg/dL (0.2-1.3); BLOOD UREA NITROGEN 12 mg/dL (7-17); CARBON DIOXIDE 25.4 mmol/L (22-30); EST GLOMERULAR FILTRATION RATE > 60 ml/min; GLUCOSE,RANDOM 116 mg/dL (70-110); INR 1.04; PARTIAL THROMBOPLASTIN TIME 22.9 SECONDS (24.5-39.1); PROTHROMBIN TIME (PATIENT) 11.2 SECONDS (9.5-12.1)
[2016-10-22 11:01] LABS: TROPONIN I < 0.012 ng/mL (0.00-0.034)
== END 2016-10-22 13:53 | disposition short-term general hospital (02) ==
LOC: ER 09:51
DX: R07.89 Other chest pain (principal); R11.2 Nausea with vomiting, unspecified; R10.13 Epigastric pain; R42 Dizziness and giddiness; Z90.49 Acquired absence of other specified parts of digestive tract
CPT/HCPCS: 99285 ×2; 96374; 96361; 83735; 85025; 85730; 85610; 84484; 80053; 93005; 93010; J2405; J7030

== ENCOUNTER 2017-01-21 09:03 | Day surgery (SDC) | payer BC ==
[2017-01-21] MEDS ORDERED: PROPOFOL 10 MG/ML VIAL IV ONE (09:04)
[2017-01-21] MEDS ORDERED: LIDOCAINE 2% MDV (20MG/ML) 20ML VIAL IV ONE (09:04)
[2017-01-21] MEDS ORDERED: FENTANYL PF 100MCG/2ML VIAL IV ONE (09:04)
--- NOTE | 2017-01-21 14:30 | Operative Note ---
DATE OF SURGERY: 01/21/2017 OPERATION: ESOPHAGOGASTRODUODENOSCOPY with multiple biopsies. INDICATION: Recently recognized gastric antral superficial linear ulceration which was noted endoscopically approximately 2 months ago. She returns at this time to assess healing. The patient continues to have epigastric discomfort and some chest burning. Upper endoscopy is performed at this time to evaluate for healing and to evaluate her symptom complex. ANESTHESIA: Intravenous sedation was administered by the department of anesthesiology and included Diprivan titrated to effect. PROCEDURE: Following informed consent from this alert individual, including a discussion of the risks and benefits of the procedure and an opportunity for the patient to ask questions, the patient was in the left lateral decubitus position. The Olympus [id number] video endoscope was inserted into the esophagus without resistance. The proximal esophagus had a normal appearance with normal folds and distensibility. The mid esophagus likewise was free from changes. The distal esophageal segment demonstrated a normal mucosa with a smooth, well-defined squamocolumnar junction approximating the diaphragmatic hiatus. The structure was traversed and the stomach was entered. The gastric fundus and pars media had a normal appearance with normal folds and distensibility. The antrum was evaluated circumferentially and demonstrated multiple inflamed antral gastric nodules which were slightly firm when biopsied serially. The pylorus itself was symmetrical and patent. The duodenal bulb, sweep, and descending duodenum were examined in a serial fashion and found to be normal. The endoscope was then withdrawn back into the stomach. Retroflexion accomplished following air insufflation failed to demonstrate additional changes. The endoscope was then straightened. Biopsies were taken from the multiple nodules as described above. A second set of biopsies were taken from a normal-appearing gastric mucosa to assess for Helicobacter pylori and check additional histology. After biopsies were completed, the endoscope was then withdrawn back through a normal esophagus and removed from the patient. She tolerated the procedure well and was returned to the recovery area in stable condition. IMPRESSION: 1. Multiple 1 to 1.5 cm inflamed-appearing nodules in the prepyloric antrum, biopsies taken. 2. Otherwise normal esophagus and duodenum. Gastric biopsies taken to assess for Helicobacter pylori and histology as well. RECOMMENDATION: At this point, the patient will be maintained on acid blockade therapy. Further recommendations forthcoming pending results of biopsies. She will follow up in the GI clinic in approximately 2 months' time to assess progress and potential further testing. As always, thank you for allowing me to participate in the care of your patient. CC: AMISHA JONES MD, FACP [facility]
== END 2017-01-21 11:23 | disposition home or self-care (01) ==
LOC: HOP 09:03
PROVIDERS: ATTEND Internal Medicine Gastroenterology
DX: K25.9 Gastric ulcer, unspecified as acute or chronic, without hemorrhage or perforation (principal); K31.89 Other diseases of stomach and duodenum; E78.00 Pure hypercholesterolemia, unspecified; F32.9 Major depressive disorder, single episode, unspecified
CPT/HCPCS: 43235; 00740; J3010

== ENCOUNTER 2017-08-26 09:03 | Day surgery (SDC) | payer MEDICARE, BC ==
[2017-08-26] MEDS ORDERED: PROPOFOL 10 MG/ML VIAL IV ONE (09:04)
[2017-08-26] MEDS ORDERED: LIDOCAINE 2% MDV (20MG/ML) 20ML VIAL IV ONE (09:04)
--- NOTE | 2017-08-26 13:40 | Operative Note ---
DATE OF SURGERY: 08/26/2017 OPERATION: ESOPHAGOGASTRODUODENOSCOPY with multiple biopsies. INDICATION: Persistent epigastric pain. The patient had previous endoscopy in January 2017 demonstrating a nodular ulcerated antral gastritis. Biopsies at that time failed to demonstrate dysplasia or infection with Helicobacter pylori. She was taking meloxicam prior to that. She returns at this time for repeat endoscopy although after the procedure admitted that she is taking Indocin twice daily for her gout in her foot. ANESTHESIA: Intravenous sedation was administered by the department of anesthesiology and included Diprivan titrated to effect. PROCEDURE: Following informed consent from this alert individual, including a discussion of the risks and benefits of the procedure and an opportunity for the patient to ask questions, the patient was in the left lateral decubitus position. The Olympus [id number] video endoscope was inserted into the esophagus without resistance. The proximal esophagus had a normal appearance with normal folds and distensibility. The mid and distal esophagus likewise was free from mucosal changes. The squamocolumnar junction approximated the diaphragmatic hiatus. The structure was traversed and the stomach was entered. The gastric fundus and pars media had a normal appearance with normal folds and distensibility. The antrum evaluated circumferentially demonstrated persistent ulcerated nodules measuring approximately 1 to 1.2 cm in diameter. Essentially unchanged from previous endoscopy in January. The pylorus itself was symmetrical and patent. The duodenal bulb, sweep, and descending duodenum were examined in a serial fashion and found to be normal. The endoscope was then withdrawn back into the body of the stomach. Retroflexion accomplished following air insufflation failed to demonstrate any abnormalities. The endoscope was then straightened. Multiple biopsies were taken from multiple nodules in the antrum. Second set of biopsies was taken from the proximal stomach to again evaluate for possible Helicobacter pylori infection. The endoscope was then withdrawn. The patient tolerated the procedure well and was returned to the recovery area in stable condition. IMPRESSION: Multiple ulcerated 1 to 1.2 cm nodules in the prepyloric antrum unchanged essentially from previous endoscopy. Multiple biopsies again taken. RECOMMENDATION: Although this could be related to anti-inflammatory medications, it is not clear. She had been on meloxicam in the past and now is taking Indocin twice daily in addition to a combination of Carafate and Protonix. Further recommendations will be forthcoming pending results of biopsies obtained today. She might benefit from endoscopic ultrasound to evaluate further. Followup will also be with Dr. Renner. I discussed the risks of using anti-inflammatory medications on causing stomach pathology and she will discuss alternative treatments with Dr. Renner. As always, thank you for allowing me to participate in the care of your patient. CC: AMISHA RENNER MD, FACP [facility]
== END 2017-08-26 11:11 | disposition home or self-care (01) ==
LOC: HOP 09:03
PROVIDERS: ATTEND Internal Medicine Gastroenterology
DX: K29.60 Other gastritis without bleeding (principal); E78.00 Pure hypercholesterolemia, unspecified

== ENCOUNTER 2017-12-05 09:43 | Day surgery (SDC) | payer MEDICARE, BC ==
[2017-12-05] MEDS ORDERED: PROPOFOL 10 MG/ML VIAL IV ONE (09:44)
[2017-12-05] MEDS ORDERED: LIDOCAINE 2% MDV (20MG/ML) 20ML VIAL IV ONE ×2 (09:44)
[2017-12-05] MEDS ORDERED: NEOMYCIN/POLY./DEXAM OPTH OINT OPTH ONE (09:44)
[2017-12-05] MEDS ORDERED: EPINEPHRINE 1 MG/ML AMPUL SQ ONE (09:44)
[2017-12-05] MEDS ORDERED: LIDOCAINE 1% MPF 100MG/10ML STERILE-PAK AMPULE IV ONE (09:44)
[2017-12-05] MEDS ORDERED: TETRACAINE HCL 0.5% 15 ML OPTH BTL OPTH ONE (09:44)
[2017-12-05] MEDS ORDERED: CIPROFLOXACIN HCL 0.0015 GM, PHENYLEPHRINE HCL 0.05 GM, KETOROLAC TROMETHAMINE 0.000625 GM MC ONE ×5 (15:00)
--- NOTE | 2017-12-07 10:49 | Operative Note ---
DATE OF PROCEDURE: 12/05/17. PREOPERATIVE DIAGNOSIS: Posterior subcapsular cataract, right eye. POSTOPERATIVE DIAGNOSIS: Posterior subcapsular cataract, right eye. OPERATION: Phacoemulsification of cataractous lens with implantation of intraocular lens. LENS IMPLANT USED: Miguel Model PCB00 + 23.0 diopters. COMPLICATIONS: None. PROCEDURE IN DETAIL: Following a retrobulbar and facial block, the patient was prepped and draped in the usual fashion for eye surgery. A lid speculum was placed in the right eye after which a 2.4 mm tunnel wound was placed at the temporal limbus and dissected into clear cornea. A paracentesis was placed at 2 o'clock hours to the left and right of the initial incision and the chamber deepened with Viscoelastic. The keratome was then used to enter the anterior chamber after which the continuous circular capsulorrhexis was accomplished without difficulty using a bent needle and a Utrata forceps. Hydrodissection and hydrodelineation of the lens was performed after which the nucleus of the lens was removed using the Phaco handpiece in the mlykrc-wac-ydbfhly technique. The residual cortical material was irrigated and aspirated from the eye after which the bag and chamber were re-examined. The bag was re-inflated with Viscoelastic and the intraocular lens injected into the capsular bag where it centered well. The Viscoelastic was then copiously irrigated and aspirated from the eye after which the temporal tunnel wound and paracentesis were hydrated and the wounds were examined. They were noted to be watertight. The lid speculum was removed from the eye and the eye patched and shielded. The patient was transferred to the recovery room in satisfactory condition and given an appointment to be reexamined in the clinic later today or as directed by Dr. Ramírez. JOB NUMBER: [id number] MTDD
== END 2017-12-05 12:00 | disposition home or self-care (01) ==
LOC: SUR 09:43
PROVIDERS: ATTEND Ophthalmology
DX: H25.11 Age-related nuclear cataract, right eye (principal); E78.00 Pure hypercholesterolemia, unspecified; K21.9 Gastro-esophageal reflux disease without esophagitis
CPT/HCPCS: J0171; J3490